=== PATIENT | female | born 2000 | race Caucasian/White ===

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

== ENCOUNTER 2021-02-14 04:57 | Emergency (ER) | payer MEDICAID ==
[2021-02-14 05:12] VITALS: BP 126/75; PULSE 132
[2021-02-14] MEDS ORDERED: Ondansetron 4 MG/2 ML SDV IVPUSH ONE (05:21)
[2021-02-14] MEDS ORDERED: Sodium Chloride 0.9% 1,000 ML IV ONE (05:21)
--- NOTE | 2021-02-14 05:30 | EDM.PDOC ---
<Argenis Cooper - Last Filed: 02/14/21 05:25> ED HPI GENERAL MEDICAL PROBLEM - General Chief Complaint: Gastrointestinal Problem Stated Complaint: VOMMITING/CANT KEEP DOWN FLUIDS FEELS WEAK Time Seen by Provider: 02/14/21 05:14 Source of Information: Reports: Patient, RN, RN Notes Reviewed History Limitations: Reports: No Limitations - History of Present Illness INITIAL COMMENTS - FREE TEXT/NARRATIVE: 20-year-old female presents to the ER with complaints nausea, vomiting and diarrhea for the past 7 hours. Patient reports eating supper at [employer] and started having diarrhea and vomiting 5 hours later. She reports she has not been able to keep anything down. She reports feeling hot prior to an emesis episode. She denies any shortness of breath, chest pain, or chills. She admits to mild abdominal discomfort. She denies any bloody emesis or stools. Onset: Gradual Onset Date: 02/13/21 Onset Time: 22:00 Duration: Hour(s): (seven) Location: Reports: Abdomen Quality: Reports: Ache - Related Data Allergies Allergy/AdvReac Type Severity Reaction Status Date / Time cefdinir [From Omnicef] Allergy Rash Verified 02/14/21 05:03 Home Meds: Home Meds buPROPion [buPROPion XL] 150 mg PO DAILY 02/14/21 [History] Past Medical History - Past Health History Medical/Surgical History: Denies Medical/Surgical History Psychiatric History: Reports: Anxiety, Depression - Infectious Disease History Infectious Disease History: Reports: Novel Coronavirus - Past Surgical History HEENT Surgical History: Reports: Adenoidectomy, Oral Surgery, Tonsillectomy Social & Family History - Family History Family Medical History: No Pertinent Family History - Tobacco Use Tobacco Use Status *Q: Never Tobacco User Second Hand Smoke Exposure: No - Caffeine Use Caffeine Use: Reports: Coffee - Recreational Drug Use Recreational Drug Use: No ED ROS GENERAL - Review of Systems Review Of Systems: Comprehensive ROS is negative, except as noted in HPI. ED EXAM, GI/ABD - Physical Exam Exam: See Below Exam Limited By: No Limitations General Appearance: Alert, Mild Distress Eyes: Bilateral: Normal Appearance Throat/Mouth: Normal Inspection, Normal Oropharynx, Normal Voice, No Airway Compromise Neck: Normal Inspection, Supple, Non-Tender, Full Range of Motion Respiratory/Chest: No Respiratory Distress, Lungs Clear, Normal Breath Sounds, No Accessory Muscle Use, Chest Non-Tender Cardiovascular: No Edema, No JVD, No Murmur, No Rub, Tachycardia GI/Abdominal Exam: Normal Bowel Sounds, Soft, No Organomegaly, No Distention Extremities: Normal Inspection, Normal Range of Motion, Non-Tender, No Pedal Maykel ma, Normal Capillary Refill Neurological: Alert, Oriented Psychiatric: Normal Affect, Normal Mood Skin Exam: Warm, Normal Color Lymphatic: No Adenopathy Course - Re-Assessments/Exams Free Text/Narrative Re-Assessment/Exam: Reviewed Exam findings with patient. Labs ordered with results pending. IV fluids and zofran 4mg initiated. Report given to oncoming provider Thalia Henley. Departure - Departure Disposition: Home, Self-Care 01 Clinical Impression: Gastroenteritis, Bacterial vaginosis - Discharge Information Instructions: Bacterial Vaginosis, [id number] Forms: ED Department Discharge Additional Instructions: Rx: Metronidazole 1.) Take all of your antibiotic until it is gone. 2.) Drink plenty of water to stay hydrated; small sips, frequently while nausea persists. 3.) Eat a bland diet while you are experiencing nausea, vomiting, and diarrhea; avoid spicy, high-fat, and greasy foods. 4.) Follow up with your primary care provider following completion of your antibiotic to ensure return to normal augustine. Sepsis Event Note (ED) - Evaluation Sepsis Screening Result: No Definite Risk <Thalia Henley - Last Filed: 02/14/21 06:19> Course - Vital Signs Last Recorded V/S: Last Vital Signs Temp 98.6 F 02/14/21 05:00 Pulse 132 H 02/14/21 05:00 Resp 18 02/14/21 05:00 BP 126/75 02/14/21 05:00 Pulse Ox 98 02/14/21 05:00 - Orders/Labs/Meds Orders: Active Orders 24 hr Category Date Time Status Sodium Chloride 0.9% [Normal Saline] 1,000 ml Med 02/14/21 05:21 Active IV .BOLUS Medication Orders Sodium Chloride (Normal Saline) 1,000 mls @ 999 mls/hr IV .BOLUS ONE Stop: 02/14/21 06:21 Last Admin: 02/14/21 05:23 Dose: 999 mls/hr Documented by: HELEN Labs: Laboratory Tests 02/14/21 02/14/21 02/14/21 Range/Units 05:20 05:20 05:27 WBC 13.4 H (5.0-10.0) 10^3/uL RBC 4.90 (4.2-5.4) 10^6/uL Hgb 14.5 (12.0-16.0) g/dL Hct 43.3 (37.0-47.0) % MCV 88.4 (80-100) fL MCH 29.6 (27.0-34.0) pg MCHC 33.5 (33.0-35.0) g/dL Plt Count 291 (150-450) 10^3/uL Neut % (Auto) 92.4 H (42.2-75.2) % Lymph % (Auto) 2.3 L (20.5-50.1) % [place] % (Auto) 4.9 (2-8) % Eos % (Auto) 0.3 L (1.0-3.0) % Baso % (Auto) 0.1 (0.0-1.0) % Sodium 141 (136-145) mmol/L Potassium 4.0 (3.5-5.1) mmol/L Chloride 104 (98-107) mmol/L Carbon Dioxide 24 (21-32) mmol/L Anion Gap 17.0 H (7-13) mEq/L BUN 13 (7-18) mg/dL Creatinine 0.87 (0.55-1.02) mg/dL Est Cr Clr Drug Dosing 89.81 mL/min Estimated GFR (MDRD) > 60 BUN/Creatinine Ratio 14.9 (No establ ref range) Glucose 122 H (74-99) mg/dL Calcium 8.4 L (8.5-10.1) mg/dL Total Bilirubin 0.6 (0.2-1.0) mg/dL AST 17 (15-37) U/L ALT 34 (14-59) U/L Alkaline Phosphatase 87 (46-116) U/L Total Protein 7.6 (6.4-8.2) g/dL Albumin 3.8 (3.4-5.0) g/dL Globulin 3.8 Albumin/Globulin Ratio 1.0 Urine Color Yellow (YELLOW) Urine Appearance Slightly cloudy (CLEAR) Urine pH 6.5 (5.0-9.0) Ur Specific [place] 1.025 (1.005-1.030) Urine Protein 30 H (NEGATIVE) Urine Glucose (UA) Negative (NEGATIVE) Urine Ketones Negative (NEGATIVE) Urine Occult Blood Negative (NEGATIVE) Urine Nitrite Negative (NEGATIVE) Urine Bilirubin Negative (NEGATIVE) Urine Urobilinogen 0.2 (0.2-1.0) mg/dL Ur Leukocyte Esterase Negative (NEGATIVE) Urine RBC Not seen /HPF Urine WBC 5-10 H (0-5/HPF) /HPF Ur Epithelial Cells Many H (NOT SEEN) /HPF Urine Bacteria Many H (0-FEW/HPF) /HPF Urine Mucus Many H (NOT SEEN) /LPF Urine Other See note Urine HCG, Qual Urine Opiates Screen (NEGATIVE) Ur Oxycodone Screen (NEGATIVE) Urine Methadone Screen (NEGATIVE) Ur Barbiturates Screen (NEGATIVE) U Tricyclic Antidepress (NEGATIVE) Ur Phencyclidine Scrn (NEGATIVE) Ur Amphetamine Screen (NEGATIVE) U Methamphetamines Scrn (NEGATIVE) Urine MDMA Screen (NEGATIVE) U Benzodiazepines Scrn (NEGATIVE) Urine Cocaine Screen (NEGATIVE) U Marijuana (THC) Screen (NEGATIVE) 02/14/21 02/14/21 Range/Units 05:27 05:27 WBC (5.0-10.0) 10^3/uL RBC (4.2-5.4) 10^6/uL Hgb (12.0-16.0) g/dL Hct (37.0-47.0) % MCV (80-100) fL MCH (27.0-34.0) pg MCHC (33.0-35.0) g/dL Plt Count (150-450) 10^3/uL Neut % (Auto) (42.2-75.2) % Lymph % (Auto) (20.5-50.1) % [place] % (Auto) (2-8) % Eos % (Auto) (1.0-3.0) % Baso % (Auto) (0.0-1.0) % Sodium (136-145) mmol/L Potassium (3.5-5.1) mmol/L Chloride (98-107) mmol/L Carbon Dioxide (21-32) mmol/L Anion Gap (7-13) mEq/L BUN (7-18) mg/dL Creatinine (0.55-1.02) mg/dL Est Cr Clr Drug Dosing mL/min Estimated GFR (MDRD) BUN/Creatinine Ratio (No establ ref range) Glucose (74-99) mg/dL Calcium (8.5-10.1) mg/dL Total Bilirubin (0.2-1.0) mg/dL AST (15-37) U/L ALT (14-59) U/L Alkaline Phosphatase (46-116) U/L Total Protein (6.4-8.2) g/dL Albumin (3.4-5.0) g/dL Globulin Albumin/Globulin Ratio Urine Color (YELLOW) Urine Appearance (CLEAR) Urine pH (5.0-9.0) Ur Specific [place] (1.005-1.030) Urine Protein (NEGATIVE) Urine Glucose (UA) (NEGATIVE) Urine Ketones (NEGATIVE) Urine Occult Blood (NEGATIVE) Urine Nitrite (NEGATIVE) Urine Bilirubin (NEGATIVE) Urine Urobilinogen (0.2-1.0) mg/dL Ur Leukocyte Esterase (NEGATIVE) Urine RBC /HPF Urine WBC (0-5/HPF) /HPF Ur Epithelial Cells (NOT SEEN) /HPF Urine Bacteria (0-FEW/HPF) /HPF Urine Mucus (NOT SEEN) /LPF Urine Other Urine HCG, Qual Negative Urine Opiates Screen Negative (NEGATIVE) Ur Oxycodone Screen Negative (NEGATIVE) Urine Methadone Screen Negative (NEGATIVE) Ur Barbiturates Screen Negative (NEGATIVE) U Tricyclic Antidepress Negative (NEGATIVE) Ur Phencyclidine Scrn Negative (NEGATIVE) Ur Amphetamine Screen Negative (NEGATIVE) U Methamphetamines Scrn Negative (NEGATIVE) Urine MDMA Screen Negative (NEGATIVE) U Benzodiazepines Scrn Negative (NEGATIVE) Urine Cocaine Screen Negative (NEGATIVE) U Marijuana (THC) Screen Negative (NEGATIVE) Meds: Medications Generic Name Dose Route Start Last Admin Trade Name Freq PRN Reason Stop Dose Admin Sodium Chloride 1,000 mls @ 999 mls/hr 02/14/21 05:21 02/14/21 05:23 Normal Saline IV 02/14/21 06:21 999 mls/hr .BOLUS ONE Administration Discontinued Medications Generic Name Dose Route Start Last Admin Trade Name Freq PRN Reason Stop Dose Admin Metronidazole 500 mg 02/14/21 06:08 Metronidazole 250 Mg Tab PO 02/14/21 06:09 ONETIME ONE Ondansetron HCl 4 mg 02/14/21 05:21 02/14/21 05:28 Ondansetron 4 Mg/2 Ml Sdv IVPUSH 02/14/21 05:22 4 mg ONETIME ONE Administration - Re-Assessments/Exams Free Text/Narrative Re-Assessment/Exam: 02/14/21 Aged Or Disabled Carer assumed care of patient at 0530. Patient verbalized improvement in symptoms following IVF and Zofran. WBC slightly elevated at 13.9 with left shift present. UA remarkable for clue cells. Given lack of severe abdominal pain or fever, elevated WBC likely due to acute illness and BV. Will treat with metronidazole 500mg. Supportive cares for gastroenteritis discussed. Red flag signs and symptoms which would warrant reevaluation reviewed. Patient verbalized understanding and agreement with the plan of care. Departure - Departure Time of Disposition: 06:12 Condition: Good - Discharge Information *PRESCRIPTION DRUG MONITORING PROGRAM REVIEWED*: Not Applicable *COPY OF PRESCRIPTION DRUG MONITORING REPORT IN PATIENT BRIANA: Not Applicable Sepsis Event Note (ED) - Focused Exam Vital Signs: Vital Signs Temp Pulse Resp BP Pulse Ox 02/14/21 05:00 98.6 F 132 H 18 126/75 98
[2021-02-14 05:44] LABS: CHLORIDE,CL 104 mmol/L (98-107); SODIUM,NA 141 mmol/L (136-145)
[2021-02-14] MEDS ORDERED: metroNIDAZOLE 250 MG Tab PO ONE (06:08)
== END 2021-02-14 06:22 | disposition home or self-care (01) ==
LOC: DL.ED 04:57
DX: K52.9 Noninfective gastroenteritis and colitis, unspecified (principal); N76.0 Acute vaginitis
CPT/HCPCS: 36415; 80053; 80305; 81001; 81025; 85025; 96374; 99283; 99284; A9270; J2405; J7030

== ENCOUNTER 2021-12-27 16:08 | Emergency (ER) | payer SELFPAY ==
[2021-12-27 16:33] VITALS: BP 151/94; PULSE 120
[2021-12-27 17:36] LABS: CORONAVIRUS COVID-19 NAA NEGATIVE (NEGATIVE); RESPIRATORY SYNCYTIAL VIR NAA NEGATIVE (NEGATIVE)
[2021-12-27] MEDS ORDERED: Clindamycin HCl 150 MG Cap PO ONE (18:09)
[2021-12-27] MEDS ORDERED: Bacitracin Oint 1 GM U/D Packet TOP ONE (18:10)
== END 2021-12-27 18:52 | disposition home or self-care (01) ==
LOC: DL.ED 16:08
DX: L73.9 Follicular disorder, unspecified (principal); L03.314 Cellulitis of groin; R31.9 Hematuria, unspecified; Z88.1 Allergy status to other antibiotic agents; Z20.822 Contact with and (suspected) exposure to COVID-19
CPT/HCPCS: 0241U; 74176; 81001; 81025; 87086; 87491; 87563; 87591; 99284; A9270

== ENCOUNTER 2022-03-30 21:35 | Emergency (ER) | payer MEDICAID ==
[2022-03-30 21:52] VITALS: BP 151/109; PULSE 98
[2022-03-30 22:19] LABS: ANION GAP 12.8 mEq/L (7-13); CHLORIDE,CL 104 mmol/L (98-107); SODIUM,NA 140 mmol/L (136-145)
[2022-03-30 22:47] LABS: CORONAVIRUS COVID-19 NAA POSITIVE (NEGATIVE)
== END 2022-03-30 22:55 | disposition home or self-care (01) ==
LOC: DL.ED 21:35
DX: U07.1 COVID-19 (principal); Z86.16 Personal history of COVID-19; Z79.899 Other long term (current) drug therapy; Z88.1 Allergy status to other antibiotic agents
CPT/HCPCS: 0240U; 36415; 71046; 80053; 81001; 81025; 85025; 99283; 99283-25

== ENCOUNTER 2022-07-09 12:36 | Emergency (ER) | payer MEDICAID, OTHER ==
[2022-07-09 15:13] VITALS: BP 125/94; PULSE 77
== END 2022-07-09 17:19 | disposition home or self-care (01) ==
LOC: DL.ED 12:36
DX: M79.675 Pain in left toe(s) (principal); Z88.1 Allergy status to other antibiotic agents; Z86.16 Personal history of COVID-19; Z77.22 Contact with and (suspected) exposure to environmental tobacco smoke (acute) (chronic)
CPT/HCPCS: 73630-LT; 99283; 99284

== ENCOUNTER 2025-05-23 18:21 | Emergency (ER) | payer SELFPAY ==
[2025-05-23] MEDS ORDERED: Sodium Chloride 0.9% 10 ML Syringe FLUSH PRN (18:22)
[2025-05-23 18:27] LABS: BASOPHILS PERCENT AUTO 0.2 % (0.0-1.0); EOSINOPHILS PERCENT AUTO 2.1 % (1.0-3.0); HEMATOCRIT 43.5 % (37.0-47.0); HEMOGLOBIN 14.6 g/dL (12.0-16.0); LYMPHOCYTES PERCENT AUTO 23.6 % (20.5-50.1); MEAN CORPUSCULAR HEMOGLOBIN 31.2 pg (27.0-34.0); MEAN CORPUSCULAR HGB CONC 33.6 g/dL (33.0-35.0); MEAN CORPUSCULAR VOLUME 92.9 fL (80-100); MONOCYTES PERCENT AUTO 8.4 % (2-8); NEUTROPHILS PERCENT AUTO 65.7 % (42.2-75.2); PLATELET COUNT,PLT 327 10^3/uL (150-450); RED BLOOD CELL COUNT 4.68 10^6/uL (4.2-5.4); WHITE BLOOD CELL COUNT,WBC 10.4 10^3/uL (5.0-10.0)
[2025-05-23 18:37] LABS: A/G RATIO 1.1; ALANINE AMINOTRANSFERASE,ALT 37 U/L (14-59); ALBUMIN 3.8 g/dL (3.4-5.0); ALKALINE PHOSPHATASE 83 U/L (46-116); ANION GAP 10.7 mEq/L (7-13); ASPARTATE AMNIOTRANSFERASE,AST 17 U/L (15-37); BILIRUBIN TOTAL 0.6 mg/dL (0.2-1.0); BLOOD UREA NITROGEN,BUN 10 mg/dL (7-18); C-REACTIVE PROTEIN 0.85 ng/dL (<=0.50); CALCIUM 8.9 mg/dL (8.5-10.1); CARBON DIOXIDE,CO2 28 mmol/L (21-32); CHLORIDE,CL 106 mmol/L (98-107); CREATININE 0.91 mg/dL (0.55-1.02); EST CRCL DRUG DOSING (CG) 83.03 mL/min; GLUCOSE RANDOM 81 mg/dL (70-99); POTASSIUM,K 3.7 mmol/L (3.5-5.1); PROTEIN TOTAL,TP 7.2 g/dL (6.4-8.2); SODIUM,NA 141 mmol/L (136-145)
[2025-05-23 18:38] LABS: ESTIMATED GFR 91 mL/min (>=60); HCG QUALITATIVE,SERUM NEGATIVE (NEGATIVE)
[2025-05-23] MEDS: Ondansetron 4 MG/2 ML SDV IVPUSH ONE (18:42)
[2025-05-23] MEDS: fentaNYL 100 MCG/2 ML SDV IVPUSH ONE (18:42)
[2025-05-23] MEDS: HYDROmorphone 0.5 MG/0.5 ML Syringe IVPUSH ONE (19:06)
[2025-05-23] MEDS: Iopamidol 612 MG/ML 100 ML Bottle IVPUSH ONE (19:10)
[2025-05-23 19:54] VITALS: BP 129/79; PULSE 84
[2025-05-23] MEDS: Ketorolac 30 MG/ML SDV IVPUSH ONE (20:41)
== END 2025-05-23 20:41 | disposition home or self-care (01) ==
LOC: DL.ED 18:21
DX: N83.201 Unspecified ovarian cyst, right side (principal); Z88.1 Allergy status to other antibiotic agents; Z79.899 Other long term (current) drug therapy; Z86.16 Personal history of COVID-19
CPT/HCPCS: 36415; 74177; 76830; 80053; 84703; 85025; 86140; 96374; 96375; 99284-25; J1171; J1885; J2405; J3010; Q9967